=== PATIENT | female | born 1980 | race Caucasian/White ===

== ENCOUNTER 2024-07-19 16:00 | Day surgery (SDC) | payer OTHER ==
[2024-07-19] MEDS ORDERED: Depo-Medrol 40 MG/ML IM ONE (16:01)
[2024-07-19] MEDS ORDERED: LIDOCAINE HCL 1% 50 MG/5 ML VL PF IJ ONE (16:01)
[2024-07-19] MEDS ORDERED: BUPIVACAINE 0.5% VIAL IJ ONE (16:01)
--- NOTE | 2024-07-19 16:49 | XRAY ---
Indication: Right knee injection. Intraoperative fluoroscopy provided for 6 seconds. Single digital spot images submitted for interpretation demonstrates needle tip projecting over right femur intercondylar notch. Small amount of contrast injected for needle tip placement. Correlate with intraoperative findings/report.
--- NOTE | 2024-07-19 16:49 | XRAY ---
Indication: Left knee injection. Intraoperative fluoroscopy provided for 4 seconds. Single digital spot images submitted for interpretation demonstrates needle tip projecting over left femur intercondylar notch. Small amount of contrast injected for needle tip placement. Correlate with intraoperative findings/report.
--- NOTE | 2024-07-19 17:09 | XRAY ---
6 seconds of fluoroscopy was used in surgery for a right intra-articular knee injection.
--- NOTE | 2024-07-19 17:09 | XRAY ---
4 seconds of fluoroscopy was used in surgery for a left intra-articular knee injection.
== END 2024-07-19 16:40 | disposition home or self-care (01) ==
LOC: SDC-PAIN 16:00
PROVIDERS: ATTEND Psychiatry & Neurology Pain Medicine
DX: M17.0 Bilateral primary osteoarthritis of knee (principal); E11.9 Type 2 diabetes mellitus without complications
CPT/HCPCS: 20610; 73560; 77002; 82947; J2001; Q9966

== ENCOUNTER 2025-10-18 07:12 | Day surgery (SDC) | payer OTHER ==
[2025-10-18] MEDS ORDERED: methylPREDNISolone acetate IM ONE (07:13)
[2025-10-18] MEDS ORDERED: BUPIVACAINE 0.5% VIAL IJ ONE (07:13)
[2025-10-18] MEDS ORDERED: propofoL IV ONE (09:07)
[2025-10-18] MEDS ORDERED: Lactated Ringers 1,000 ML IV ONE (09:47)
--- NOTE | 2025-10-18 10:51 | XRAY ---
Indication: Bilateral hip injection. Intraoperative fluoroscopy provided for 22 seconds. 2 digital spot image submitted for interpretation demonstrates needle tip projecting lateral to left and right femur necks. Small amount of contrast injected for needle tip placement. Correlate with intraoperative findings/report.
--- NOTE | 2025-10-18 10:51 | XRAY ---
22 seconds of fluoroscopy was used in surgery for bilateral hip intra-articular injections.
== END 2025-10-18 09:40 | disposition home or self-care (01) ==
LOC: SDC-PAIN 07:12
PROVIDERS: ATTEND Psychiatry & Neurology Pain Medicine
DX: M16.0 Bilateral primary osteoarthritis of hip (principal); E11.9 Type 2 diabetes mellitus without complications